=== PATIENT | male | born 1980 | race Hispanic/Latino ===

== ENCOUNTER → 2021-11-24 | Outpatient (CLI) | payer OTHER | END | disposition home or self-care (01) | LOC: RAH 14:24 | PROVIDERS: ATTEND Neurological Surgery | DX: M43.22 Fusion of spine, cervical region (principal); M54.50 Low back pain, unspecified; Z98.1 Arthrodesis status; R25.2 Cramp and spasm | CPT/HCPCS: 72050; 72114; 72125 ==

== ENCOUNTER 2023-11-12 21:26 | Emergency (ER) | payer BC, OTHER ==
[~2023-11-12] VITALS: Ht 162.6 cm; Wt 87.1 kg
[2023-11-12 22:07] LABS: BASOPHILS # (AUTO) 0.05 K/uL (0.00-0.20); BASOPHILS % (AUTO) 0.4 % (0.0-5.0); EOSINOPHILS # (AUTO) 0.31 K/uL (0.00-0.70); EOSINOPHILS % (AUTO) 2.5 % (0.0-8.0); HEMATOCRIT 44.1 % (42-54); IMMATURE GRANULOCYTE ABSOLUTE 0.03 K/uL (0-1); LYMPHOCYTES # (AUTO) 2.7 K/uL (1.0-4.8); LYMPHOCYTES % (AUTO) 21.9 % (21.0-51.0); MEAN CORPUSCULAR HEMOGLOBIN 30.4 pg (27.0-33.0); MEAN CORPUSCULAR HGB CONC 34.5 g/dL (32.0-36.0); MEAN CORPUSCULAR VOLUME 88.2 fL (79-99); MONOCYTES # (AUTO) 1.1 K/uL (0.1-1.0); MONOCYTES % (AUTO) 9.2 % (3.0-13.0); NEUTROPHILS # (AUTO) 8.1 K/uL (1.8-7.7); NEUTROPHILS % (AUTO) 65.8 % (40.0-77.0); PLATELET COUNT (AUTO) 264 K/uL (130-400); WHITE BLOOD COUNT (AUTO) 12.4 K/uL (4.8-10.8)
[2023-11-12 22:13] VITALS: BP 113/62; PULSE 85; RESP 20
[2023-11-12 22:21] LABS: CREATININE 1.1 mg/dL (0.5-1.3); POTASSIUM 3.4 mmol/L (3.5-5.1)
[2023-11-12 22:23] LABS: INR <= 0.93 (0.85-1.15); PROTHROMBIN TIME 10.9 SEC (9.6-11.6)
[2023-11-12 22:24] LABS: PARTIAL THROMBOPLASTIN TIME 26.6 SEC (26.3-35.5)
[2023-11-13] MEDS ORDERED: MECL-302 PO
[2023-11-13] MEDS: MECLIZINE HCL 25 MG TABLET ONE (00:16)
[2023-11-13] MEDS ORDERED: MECLIZINE HCL 25 MG TABLET PO ONE (00:30)
== END 2023-11-13 00:26 | disposition home or self-care (01) ==
LOC: EDH 21:26
DX: R42 Dizziness and giddiness (principal); I10 Essential (primary) hypertension; E78.00 Pure hypercholesterolemia, unspecified
CPT/HCPCS: 36415; 80048; 82550; 84484; 85025; 85610; 85730; 99282